=== PATIENT | female | born 1955 | race Caucasian/White ===

== ENCOUNTER → 2023-09-25 09:58 | Outpatient (REF) | payer OTHER, SELFPAY | LOC: WDC 09:58 | PROVIDERS: ATTENDING PHYSICIAN Family Medicine | DX: Z12.31 Encounter for screening mammogram for malignant neoplasm of breast (principal) | CPT/HCPCS: 77063; 77067 ==

== ENCOUNTER → 2024-09-12 13:02 | Outpatient (REF) | payer OTHER, SELFPAY | LOC: RAD 13:02 | PROVIDERS: ATTENDING PHYSICIAN Family Medicine | DX: M79.674 Pain in right toe(s) (principal) | CPT/HCPCS: 73630; 73660 ==